=== PATIENT | female | born 1950 | race Hispanic/Latino ===

== ENCOUNTER → 2019-11-21 | Outpatient (CLI) | payer OTHER | END | disposition home or self-care (01) | LOC: RAH 12:42 | PROVIDERS: ATTEND Internal Medicine | DX: Z12.31 Encounter for screening mammogram for malignant neoplasm of breast (principal) | CPT/HCPCS: 77067 ==

== ENCOUNTER → 2020-11-26 | Outpatient (CLI) | payer OTHER | END | disposition home or self-care (01) | LOC: RAH 12:16 | PROVIDERS: ATTEND Internal Medicine | DX: Z12.31 Encounter for screening mammogram for malignant neoplasm of breast (principal); N64.89 Other specified disorders of breast | CPT/HCPCS: 77067 ==

== ENCOUNTER → 2022-12-12 | Outpatient (CLI) | payer OTHER | END | disposition home or self-care (01) | LOC: RAH 11:06 | PROVIDERS: ATTEND Internal Medicine | DX: Z12.31 Encounter for screening mammogram for malignant neoplasm of breast (principal) | CPT/HCPCS: 77067 ==

== ENCOUNTER 2023-12-22 06:09 | Day surgery (SDC) | payer OTHER ==
[~2023-12-22] VITALS: Ht 154.9 cm; Wt 65.8 kg
[2023-12-22] VITALS (11 sets, daily range): BP systolic 109–134; BP diastolic 55–68; PULSE 55–59; RESP 15–16
[~2023-12-22 06:09] MED LIST: 0.9%NACL 1000ML 1,000 ML IV ONE; ASCO500T19 PO; ASPI-1197 PO; CALC-1009 PO; CHLO25TA3 PO; CYAN-106 PO; EMPA10TA PO; FISH1CAP27 PO; GLIP10TA9 PO; METF-446 PO; METO-391 PO; PANT40GR PO; SIMV40TA59 PO
[2023-12-22] MEDS ORDERED: PROPOFOL 10 MG/ML 20ML VIAL IV ONE (09:16)
== END 2023-12-22 10:45 | disposition home or self-care (01) ==
LOC: ENDO 06:09 → DAH 06:09 → ENDO 10:45
PROVIDERS: ATTEND Internal Medicine Gastroenterology
DX: Z12.11 Encounter for screening for malignant neoplasm of colon (principal); R12 Heartburn; K57.30 Diverticulosis of large intestine without perforation or abscess without bleeding; K62.1 Rectal polyp; R11.0 Nausea; K21.00 Gastro-esophageal reflux disease with esophagitis, without bleeding; K29.70 Gastritis, unspecified, without bleeding; R14.0 Abdominal distension (gaseous); K59.00 Constipation, unspecified; I10 Essential (primary) hypertension; M19.90 Unspecified osteoarthritis, unspecified site; E11.9 Type 2 diabetes mellitus without complications; Z79.899 Other long term (current) drug therapy; Z79.82 Long term (current) use of aspirin
CPT/HCPCS: 82948 ×2; 43239; 45380; J7030 ×2; J2704; A4620; A4215 ×2; A4223; A7002; A4222; A4221; A4663; A4606; J3490

== ENCOUNTER → 2023-12-30 | Outpatient (CLI) | payer OTHER ==
[~2023-12-30] MED LIST changes: -0.9%NACL 1000ML 1,000 ML IV ONE; +IOHEXOL 350 MG/ML 100ML INFUS..BTL IV ONE
== END | disposition home or self-care (01) ==
LOC: RAH 10:05
PROVIDERS: ATTEND Internal Medicine Cardiovascular Disease
DX: I20.9 Angina pectoris, unspecified (principal); M47.815 Spondylosis without myelopathy or radiculopathy, thoracolumbar region; R07.9 Chest pain, unspecified
CPT/HCPCS: 75574; Q9967

== ENCOUNTER 2024-01-09 14:55 | Emergency (ER) | payer OTHER ==
[~2024-01-09] VITALS: Ht 157.5 cm; Wt 62.6 kg
[~2024-01-09 14:55] MED LIST changes: -IOHEXOL 350 MG/ML 100ML INFUS..BTL IV ONE
[2024-01-09 16:06] LABS: BASOPHILS # (AUTO) 0.05 K/uL (0.00-0.20); BASOPHILS % (AUTO) 0.5 % (0.0-5.0); EOSINOPHILS # (AUTO) 0.16 K/uL (0.00-0.70); EOSINOPHILS % (AUTO) 1.7 % (0.0-8.0); IMMATURE GRANULOCYTE ABSOLUTE 0.04 K/uL (0-1); LYMPHOCYTES # (AUTO) 1.6 K/uL (1.0-4.8); LYMPHOCYTES % (AUTO) 16.8 % (21.0-51.0); MEAN CORPUSCULAR HEMOGLOBIN 28.6 pg (27.0-33.0); MEAN CORPUSCULAR HGB CONC 34.2 g/dL (32.0-36.0); MEAN CORPUSCULAR VOLUME 83.5 fL (79-99); MONOCYTES # (AUTO) 0.6 K/uL (0.1-1.0); MONOCYTES % (AUTO) 6.7 % (3.0-13.0); NEUTROPHILS # (AUTO) 7.1 K/uL (1.8-7.7); NEUTROPHILS % (AUTO) 73.9 % (40.0-77.0); PLATELET COUNT (AUTO) 284 K/uL (130-400); RED BLOOD CELL COUNT(AUTO) 4.55 MIL/uL (4.00-5.50); RED CELL DISTRIBUTION WIDTH 13.7 % (11.0-15.5); WHITE BLOOD COUNT (AUTO) 9.6 K/uL (4.8-10.8)
[2024-01-09 16:25] LABS: CREATININE 1.1 mg/dL (0.5-1.0); INR <= 0.93 (0.85-1.15); POTASSIUM 3.8 mmol/L (3.5-5.1); PROTHROMBIN TIME 10.2 SEC (9.6-11.6)
[2024-01-09 16:26] LABS: B-TYPE NATRIURETIC PEPTIDE 86 pg/mL (0-100)
[2024-01-09 16:29] LABS: ALBUMIN 3.6 g/dL (3.5-5.0); BILIRUBIN,TOTAL 0.4 mg/dL (0.2-1.0); TOTAL PROTEIN, SERUM 6.8 g/dL (6.0-8.3)
[2024-01-09 17:23] VITALS: PULSE 67; RESP 20
[2024-01-09 17:27] VITALS: BP 122/55; PULSE 73; RESP 23; O2SAT 99
[2024-01-09] MEDS: ALBUTEROL 0.083% 2.5 MG/3 ML INH IH ONE (17:30)
[2024-01-09] MEDS ORDERED: ALBUHFA IH (17:48)
== END 2024-01-09 18:23 | disposition home or self-care (01) ==
LOC: EDH 14:55
DX: S80.02XA Contusion of left knee, initial encounter (principal); S80.01XA Contusion of right knee, initial encounter; I10 Essential (primary) hypertension; E11.9 Type 2 diabetes mellitus without complications; E78.00 Pure hypercholesterolemia, unspecified; Z20.822 Contact with and (suspected) exposure to COVID-19; Z79.82 Long term (current) use of aspirin; Z79.84 Long term (current) use of oral hypoglycemic drugs; Z79.899 Other long term (current) drug therapy; Z98.890 Other specified postprocedural states; W01.0XXA Fall on same level from slipping, tripping and stumbling without subsequent striking against object, initial encounter; Y93.01 Activity, walking, marching and hiking; Y92.89 Other specified places as the place of occurrence of the external cause; Y99.8 Other external cause status
CPT/HCPCS: 36415; 71045; 73562; 80053; 83880; 84484; 85025; 85610; 87426; 93005; 94640

== ENCOUNTER → 2024-02-19 | Outpatient (CLI) | payer OTHER ==
[~2024-02-19] MED LIST changes: +ALBUHFA IH
== END | disposition home or self-care (01) ==
LOC: SHCH 07:38
PROVIDERS: ATTEND Internal Medicine Cardiovascular Disease
DX: I35.8 Other nonrheumatic aortic valve disorders (principal); R06.09 Other forms of dyspnea; R07.9 Chest pain, unspecified; E11.9 Type 2 diabetes mellitus without complications; I10 Essential (primary) hypertension
CPT/HCPCS: 93306

== ENCOUNTER → 2024-03-10 | Outpatient (CLI) | payer OTHER | END | disposition home or self-care (01) | LOC: RAH 13:13 | PROVIDERS: ATTEND Internal Medicine Cardiovascular Disease | DX: R06.02 Shortness of breath (principal); R06.00 Dyspnea, unspecified | CPT/HCPCS: 78582; 71046; A9540; A9558 ==

== ENCOUNTER 2025-02-08 22:28 | Emergency (ER) | payer OTHER ==
[~2025-02-08] VITALS: Ht 157.5 cm; Wt 70.8 kg
[~2025-02-08 22:28] MED LIST changes: +ADVAIR IH; -ALBUHFA IH; -ASPI-1197 PO; -CALC-1009 PO; -CHLO25TA3 PO; +FAMO20TA8 PO; -FISH1CAP27 PO; +GLIP10TA16 PO; -GLIP10TA9 PO; +LEVO5TAB13 PO; +METF-444 PO; -METF-446 PO; -METO-391 PO; +METO50 PO; +MONT-39 PO; -SIMV40TA59 PO; +TRELEGY IH; +[UNRECOGNIZED DRUG - OTHER] OD
[2025-02-08 22:31] VITALS: TEMP 97.5
--- NOTE | 2025-02-08 22:46 | NUR ---
PT ARRIVED S/P FALL AT HOME, VOICED SHE TRIPPED WHILE WALKING. NEG LOC, NO BLOOD THINNERS. C/O PAIN TO R KNEE, AND R SIDE OF BODY. CONTUSION TO R CONGREGATION. PT IS AWAKE AND ALERT X4 PT VOICED SHE IS SCHEDULED FOR OPEN HEART SURGERY THIS COMING WEEK.
--- NOTE | 2025-02-08 23:00 | ERN ---
ED Note History of Present Illness Stated Complaint: C/O PAIN TO HEAD, CHEST WALL PAIN, KNEE PAIN /FALL Chief Complaint: Mechanical Fall Time Seen by MD: 22:33 Dictation: Patient is a 74-year-old female with a history of diabetes mellitus, hypertension, CAD, status post angiogram done recently from what the patient reported that she has scheduled for a CABG in next week. Patient presented to the ER after a mechanical fall at home, she fell hitting her head and chest. She also complaining of pain on her foot. As per patient's daughter reports that early today patient also almost fell while was walking in the street, but since she was close to her she was able to hold her mother, prevented her from fall earlier. Patient denies dizziness, chest pain, loss of consciousness during the episode. On evaluation at bedside the patient is complaining of chest wall pain, foot pain. Patient does have a hematoma on her right supraorbital area. She mentioned that she only takes baby aspirin no other anticoagulation at home. Allergies: Coded Allergies: No Known Drug Allergies (Unverified Allergy, Unknown, 01/09/24) Home Meds Reported Medications Famotidine (Famotidine) 20 Mg Tablet, 20 MG PO BID, TAB 01/09/25 [Miobo] No Conflict Check, 2 DROP OD BID 01/09/25 [Trelegy] No Conflict Check, 1 PUFF IH AM 01/09/25 [Advair] No Conflict Check, 2 PUFF IH AD PRN for SHORTNESS OF BREATH 01/09/25 Levocetirizine Dihydrochloride (Levocetirizine Dihydrochloride) 5 Mg Tablet, 5 MG PO HS, TAB 01/09/25 Montelukast Sodium (Montelukast Sodium) 10 Mg Tablet, 10 MG PO AM, TAB 01/09/25 Metformin HCl (Metformin HCl) 500 Mg Tablet, 500 MG PO BID, TAB 01/09/25 Metoprolol Tartrate (Lopressor 50Mg Tab) 50 Mg Tab, 50 MG PO BID, TAB 01/09/25 Ascorbic Acid/Ascorbate Sodium (Vitamin C 500 mg Tablet Chew) 500 Mg Tab.chew, 1000 MG PO DAILY, TAB.CHEW 12/21/23 Pantoprazole Sodium (Pantoprazole Sodium) 40 Mg Granpkt.dr, 40 MG PO BID, PACK 12/21/23 Glipizide (Glipizide) 10 Mg Tablet, 10 MG PO DAILY, TAB 12/21/23 Cyanocobalamin (Vitamin B-12) (Vitamin B12) 1,000 Mcg Tablet, 1000 MCG PO DAILY, TAB 12/21/23 Empagliflozin (Jardiance) 10 Mg Tablet, 10 MG PO DAILY, TAB 12/21/23 Past Medical History Past Medical History: Arthritis, Diabetes-Type II, High Cholesterol, Heart Disease, Hypertension Additional Past Medical Hx: HX OF OSTEOPOROSIS Surgical History: Other Surgical History Other: HX OF RT ANKLE, RT SHOULDER, RT KNEE SX History: Not Applicable Review of System Dictation NEGATIVE EXCEPT PER HPI Constitutional: Negative for fever,chills, and weight loss Head: Pain hematoma in the head Eyes: Negative for injury, pain,redness, and discharge ENT: Negative for injury,pain or swelling Cardiovascular: denies chest pain, palpitations, and edema Respiratory: Negative for shortness of breath, cough, and wheezing, Abdomen/GI: Negative for abdominal pain, nausea, vomiting, diarrhea, and constipation Back: Negative for injury and pain : Negative for injury, bleeding and discharge MS/Extremity: Chest wall pain, foot pain. Skin: Negative for rash, and discoloration Neuro: Head pain Psych: Negative for suicide ideation, homicidal ideation, and hallucinations Initial Vital Sign VS Vital Signs Date Time Temp Pulse Resp B/P (MAP) Pulse Ox O2 Delivery O2 Flow Rate FiO2 02/08/25 22:31 97.5 81 20 160/73 99 Room Air 02/08/25 22:50 0 21 Physical Exam Dictation General: awake, alert, NAD Head/Face: Right-sided supraorbital hematoma. Eyes: PERRL, EOMI, vision at baseline ENT: oral cavity clear, TMs clear, no signs of infection Neck: Trachea midline, supple, no nuchal rigidity Cardiovascular: RRR, normal S1/S2, No MRGs, no JVD Respiratory: CTAB, no respiratory distress, No rales or wheezes Abdomen: Soft , no tender Skin: Warm, dry, normal turgor, no rash MS/Extremity: Pulses equal, no cyanosis, neurovascular intact, FROM. Chest wall tenderness. Neuro: COAx4, GCS 15, strength 5/5, CN 2-12 intact, normal cerebellar exam, normal gait, Psych: Normal behavior, mood, and affect normal Results (Laboratory/Radiology) Laboratory/Radiology Laboratory Tests Test 02/08/25 23:12 White Blood Count 6.3 K/uL (4.8-10.8) Red Blood Count 3.96 MIL/uL (4.00-5.50) L Hemoglobin 10.7 g/dL (12.0-16.0) L Hematocrit 32.9 % (36-48) L Mean Corpuscular Volume 83.1 fL (79-99) Mean Corpuscular Hemoglobin 27.0 pg (27.0-33.0) Mean Corpuscular Hemoglobin Concent 32.5 g/dL (32.0-36.0) Red Cell Distribution Width 16.2 % (11.0-15.5) H Platelet Count 262 K/uL (130-400) Mean Platelet Volume 10.4 fL (7.5-10.5) Immature Granulocyte % (Auto) 0.6 % (0-1) Neutrophils (%) (Auto) 57.8 % (40.0-77.0) Lymphocytes (%) (Auto) 27.0 % (21.0-51.0) Monocytes (%) (Auto) 10.0 % (3.0-13.0) Eosinophils (%) (Auto) 3.8 % (0.0-8.0) Basophils (%) (Auto) 0.8 % (0.0-5.0) Neutrophils # (Auto) 3.6 K/uL (1.8-7.7) Lymphocytes # (Auto) 1.7 K/uL (1.0-4.8) Monocytes # (Auto) 0.6 K/uL (0.1-1.0) Eosinophils # (Auto) 0.24 K/uL (0.00-0.70) Basophils # (Auto) 0.05 K/uL (0.00-0.20) Absolute Immature Granulocyte (auto 0.04 K/uL (0-1) Nucleated Red Blood Cells 0.0 % (0.0-0.19) Sodium Level 135 mmol/L (136-145) L Potassium Level 4.7 mmol/L (3.5-5.1) Chloride Level 99 mmol/L (101-111) L Carbon Dioxide Level 20 mmol/L (21-32) L Blood Urea Nitrogen 19 mg/dL (7-18) H Creatinine 1.6 mg/dL (0.5-1.0) H Glomerular Filtration Rate Calc 34 mL/min (>90) Random Glucose 214 mg/dL (70-105) H Total Calcium 9.0 mg/dL (8.5-10.1) Troponin I High Sensitivity < 4 ng/L (4-50) L ED Course ED Course Orders Procedure Category Date Status Time Ct Head/Brain W/O CT 02/08/25 Resulted Contrast 22:42 Ct Maxillofacial W/O CT 02/08/25 Resulted Contrast 22:42 Chest 1vw RAD 02/08/25 Resulted 22:48 Cbc With Differential LAB 02/08/25 Complete 22:48 Troponin I High LAB 02/08/25 Complete Sensitivity 22:48 Urinalysis Profile LAB 02/08/25 Logged 22:48 Basic Metabolic Panel LAB 02/08/25 Complete 22:48 Hip Unilat 1vw Left RAD 02/08/25 Resulted 22:50 Hip Unilat 1vw Right RAD 02/08/25 Resulted 22:50 Acetaminophen 500mg PHA 02/08/25 Complete Tab (Tylenol 500mg T 23:00 Current Medications Medications (Trade) Dose Ordered Sig/Jonnathan Route PRN Reason Start Time Stop Time Status Last Admin Dose Admin Acetaminophen (TYLenol 500MG TAB) 500 mg ONCE ONCE PO 02/08/25 23:00 02/08/25 23:01 DC 02/08/25 23:03 Vital Signs Date Time Temp Pulse Resp B/P (MAP) Pulse Ox O2 Delivery O2 Flow Rate FiO2 02/09/25 00:10 71 18 143/53 100 Room Air* 0 21 02/08/25 22:50 74 18 160/68 98 Room Air* 0 21 02/08/25 22:31 97.5 81 20 160/73 99 Room Air Medical Decision Making MDM 74-year-old female with a past medical history of CAD and pending a CABG to be performed next week. Per patient report. Came to the ER due to a mechanical fall, has a hematoma to the orbital area right side. Patient has been feeling more weak lately CT images of head face Chest x-ray Hip x-ray Troponin level UA to rule out UTI OLDER STUDIES DONE ABOVE WAS WITHIN NORMAL LIMITS NO ACUTE FRACTURES FINE. PATIENT STILL HIGH RISK FOR FALL, I OFFER TO ADMIT THE PATIENT FOR FURTHER OBSERVATION BUT SHE SAID SHE PREFERRED TO GO HOME. DAUGHTER WAS AT BEDSIDE AND WE DISCUSSED FALL PRECAUTIONS. PATIENT MUST FOLLOW UP WITH THE PRIMARY CARE PHYSICIAN IN NEXT 24 HOURS. DX & DISP Disposition: Discharge Departure Impression: Primary Impression: Fall Additional Impressions: Knee contusion, Traumatic hematoma of face Condition: Stable Scripts Acetaminophen (Tylenol) 500 Mg Tab 1 TAB PO Q6HPRN PRN for pain or fever for 5 Days, #30 TAB 0 Refills Prov: REJI CUETO MD 02/09/25 Additional Instructions: RETURN TO ER FOR ANY ACUTE OR WORSENING SYMPTOMS. FOLLOW-UP IN 1-2 DAYS WITH PRIMARY PROVIDER FOR RECHECK OF TODAY'S SYMPTOMS. Referrals: JATIN QUIROZ MD (PCP) Time of Disposition: 00:16 REJI CUETO MD February 08, 2025 22:59
[2025-02-08] MEDS: acetaMINOPHEN 500 MG TABLET PO ONE (23:03)
--- NOTE | 2025-02-08 23:15 | HMCIMG ---
HIP UNILAT 1VW RIGHT REASON: fall. COMPARISON: None TECHNIQUE: 2 images of right hip were obtained. FINDINGS: No acute displaced fracture or dislocation is seen. Degenerative changes are seen. Right joint space narrowing is seen. IMPRESSION: Findings as described above.
--- NOTE | 2025-02-08 23:16 | HMCIMG ---
HIP UNILAT 1VW LEFT REASON: fall. COMPARISON: Status post fall TECHNIQUE: 2 images of the left hip were obtained. FINDINGS: Joint space narrowing is seen. No acute displaced fracture is seen. IMPRESSION: Findings are described above.
[2025-02-08 23:18] LABS: BASOPHILS # (AUTO) 0.05 K/uL (0.00-0.20); BASOPHILS % (AUTO) 0.8 % (0.0-5.0); EOSINOPHILS # (AUTO) 0.24 K/uL (0.00-0.70); EOSINOPHILS % (AUTO) 3.8 % (0.0-8.0); HEMATOCRIT 32.9 % (36-48); IMMATURE GRANULOCYTE ABSOLUTE 0.04 K/uL (0-1); LYMPHOCYTES # (AUTO) 1.7 K/uL (1.0-4.8); MEAN CORPUSCULAR HGB CONC 32.5 g/dL (32.0-36.0); MEAN CORPUSCULAR VOLUME 83.1 fL (79-99); MONOCYTES # (AUTO) 0.6 K/uL (0.1-1.0); NEUTROPHILS # (AUTO) 3.6 K/uL (1.8-7.7); NEUTROPHILS % (AUTO) 57.8 % (40.0-77.0); PLATELET COUNT (AUTO) 262 K/uL (130-400); RED BLOOD CELL COUNT(AUTO) 3.96 MIL/uL (4.00-5.50); RED CELL DISTRIBUTION WIDTH 16.2 % (11.0-15.5); WHITE BLOOD COUNT (AUTO) 6.3 K/uL (4.8-10.8)
--- NOTE | 2025-02-08 23:18 | HMCIMG ---
CHEST 1VW HISTORY: Status post fall COMPARISON: 01/09/2025 FINDINGS: A frontal projection of the chest was obtained. No acute pulmonary infiltrates is seen. The heart is borderline enlarged. Postop changes are seen of right proximal humerus. Aortic calcifications are seen. IMPRESSION: 1. No acute pulmonary infiltrate is seen.
[2025-02-08 23:41] LABS: CREATININE 1.6 mg/dL (0.5-1.0); POTASSIUM 4.7 mmol/L (3.5-5.1)
--- NOTE | 2025-02-08 23:41 | HMCIMG ---
CT HEAD/BRAIN W/O CONTRAST HISTORY: Status post fall COMPARISON: None TECHNIQUE: Multiple sequential axial images of the head were obtained from the base of the skull through vertex. Patient was not given contrast through intravenous route. FINDINGS: The ventricles and extraventricular CSF spaces are dilated consistent with cerebral atrophy. Nonspecific white matter changes seen. There is no midline shift, mass effect or herniation. No acute intracranial bleed is seen. Visualized portion of the paranasal sinuses are grossly within normal limits. IMPRESSION: 1. No acute intracranial bleed is seen. 2. Atrophy with white matter changes. CT was performed with one or more following dose reduction techniques: automated exposure control, adjustment of the mA and kv according to patient's size, or use of a iterative reconstruction technique.
--- NOTE | 2025-02-08 23:41 | HMCIMG ---
CT MAXILLOFACIAL W/O CONTRAST HISTORY: Status post fall COMPARISON: None TECHNIQUE: Multiple sequential high-resolution axial images of the paranasal sinuses were obtained. Postprocessing sagittal and coronal reconstruction images were also obtained. Patient was not given contrast through intravenous route. FINDINGS: Nasal septum is grossly midline. There is no evidence of mucoperiosteal thickening involving the paranasal sinuses. The infundibula are patent bilaterally. No acute displaced fracture is seen. There is no evidence of air-fluid level in the paranasal sinuses. Parapharyngeal fat planes are preserved bilaterally. IMPRESSION: 1. No acute displaced fracture is seen. CT was performed with one or more following dose reduction techniques: automated exposure control, adjustment of the mA and kv according to patient's size, or use of a iterative reconstruction technique.
[2025-02-09 00:10] VITALS: BP 143/53; PULSE 71; RESP 18; O2SAT 100
[2025-02-09] MEDS ORDERED: ACET-66 PO (00:17)
== END 2025-02-09 00:32 | disposition home or self-care (01) ==
LOC: EDH 22:28
DX: S00.83XA Contusion of other part of head, initial encounter (principal); S80.01XA Contusion of right knee, initial encounter; E11.9 Type 2 diabetes mellitus without complications; I11.9 Hypertensive heart disease without heart failure; E78.00 Pure hypercholesterolemia, unspecified; M19.90 Unspecified osteoarthritis, unspecified site; Z79.51 Long term (current) use of inhaled steroids; Z79.84 Long term (current) use of oral hypoglycemic drugs; Z79.899 Other long term (current) drug therapy; W18.39XA Other fall on same level, initial encounter; Y93.01 Activity, walking, marching and hiking; Y92.89 Other specified places as the place of occurrence of the external cause; Y99.8 Other external cause status
CPT/HCPCS: 36415; 70450; 70486; 71045; 73501; 80048; 84484; 85025; 99284